=== PATIENT | female | born 1980 | race African-American/Black ===

== ENCOUNTER 2021-04-26 10:03 | Inpatient (IN) | payer MEDICARE ==
[2021-04-26] MEDS: HYDROcodone/Acetaminophen 10/325 mg Tablet PO PRN (16:17)
[2021-04-26] MEDS ORDERED: Artificial Tear Sol 15 ML BOT EA EYE PRN (16:40)
[2021-04-26] MEDS ORDERED: Calcium Carbonate 500 MG ChewTAB PO PRN (16:40)
[2021-04-26] MEDS ORDERED: Ondansetron PF 4 MG/2 ML Vial IVP PRN (16:40)
[2021-04-26] MEDS ORDERED: Guaifenesin DM 100-10/5 ML UDCUP PO PRN (16:40)
[2021-04-26] MEDS ORDERED: Senokot S 8.6-50 MG TAB PO PRN (16:40)
[2021-04-26] MEDS ORDERED: Bisacodyl 5 MG TAB PO PRN (16:40)
[2021-04-26] MEDS ORDERED: Ondansetron ODT 4 MG TAB PO PRN (16:40)
[2021-04-26] MEDS ORDERED: Benzonatate 100 MG CAP PO PRN (16:40)
[2021-04-26] MEDS: Famotidine 20 MG TAB PO SCH (21:43)
[2021-04-26] MEDS: metroNIDAZOLE 500 MG TAB PO SCH (21:44)
[2021-04-27 06:41] LABS: #Basophils 0.1 thou/uL (0.0-0.2); #Eosinphils 0.3 thou/uL (0.0-0.7); #Lymphocytes 2.1 thou/uL (1.20-3.40); #Monocytes 0.7 thou/uL (0.11-0.59); #Neutrophils 5.9 thou/uL (1.40-6.50); %Basophils 0.6 % (0.0-1.0); %Eosinophils 3.8 % (0.0-10.0); %Lymphocytes 23.3 % (21.0-51.0); %Monocytes 7.1 % (0.0-10.0); %Neutrophils 65.3 % (42.0-75.0); Mean Corpuscular Hemoglobin 26.5 pg (27.0-31.0); Mean Corpuscular Volume 85.6 fL (78.0-98.0); Mean Platelet Volume 6.1 fL (7.4-10.4); Platelet Count 379 thou/uL (130-400); Red Blood Cell (RBC) Count 3.38 mill/uL (4.20-5.40); White Blood Cell (WBC) Count 9.1 thou/uL (4.8-10.8)
[2021-04-27 06:55] LABS: ALT (SGPT) 18 U/L (8-55); AST (SGOT) 21 U/L (5-34); Albumin 2.4 g/dL (3.5-5.0); Alkaline Phosphatase 32 U/L (40-110); Anion Gap 11 mmol/L (10-20); BUN (Urea Nitrogen) 8 mg/dL (7.0-18.7); Bilirubin, Total 0.2 mg/dL (0.2-1.2); Calc. Creatinine Clearance 175 mL/min (70-130); Calcium 8.3 mg/dL (7.8-10.44); Carbon Dioxide 25 mmol/L (22-29); Chloride 106 mmol/L (98-107); Globulin 4.5 g/dL (2.4-3.5); Glucose 99 mg/dL (70-105); Potassium 3.5 mmol/L (3.5-5.1); Protein, Total 6.9 g/dL (6.0-8.3); Sodium 138 mmol/L (136-145)
[2021-04-27] MEDS: Oxybutynin ER 5 MG TAB PO SCH (08:38)
[2021-04-27] MEDS: Famotidine 20 MG TAB PO SCH ×2 (08:39→21:05)
[2021-04-27] MEDS: Vitamin E 400 UNITS CAP PO SCH (08:39)
[2021-04-27] MEDS: Enoxaparin Sodium 40 MG/0.4 ML SYRINGE SC SCH (08:39)
[2021-04-27] MEDS: metroNIDAZOLE 500 MG TAB PO SCH ×2 (08:39→21:05)
[2021-04-27] MEDS: Ascorbic Acid 500 mg Chewable Tablet PO SCH (08:39)
[2021-04-27] MEDS: cefTRIAXone\\ROCEPHIN 2 GM in Sodium Chloride 0.9% 100 ML IVPB SCH (08:40)
[2021-04-27 16:24] LABS: SARS-CoV-2 PCR by NAA Not Detected (NotDetected)
[2021-04-28] MEDS: Saccharomyces boulardii 250 MG CAP PO SCH (08:05)
[2021-04-28] MEDS: Ascorbic Acid 500 mg Chewable Tablet PO SCH (08:05)
[2021-04-28] MEDS: Famotidine 20 MG TAB PO SCH ×2 (08:05→21:15)
[2021-04-28] MEDS: Vitamin E 400 UNITS CAP PO SCH (08:05)
[2021-04-28] MEDS: metroNIDAZOLE 500 MG TAB PO SCH ×2 (08:05→21:15)
[2021-04-28] MEDS: cefTRIAXone\\ROCEPHIN 2 GM in Sodium Chloride 0.9% 100 ML IVPB SCH (08:06)
[2021-04-28] MEDS: Enoxaparin Sodium 40 MG/0.4 ML SYRINGE SC SCH (08:06)
[2021-04-28] MEDS: Oxybutynin ER 5 MG TAB PO SCH (13:48)
[2021-04-29 06:09] LABS: #Basophils 0.1 thou/uL (0.0-0.2); #Eosinphils 0.3 thou/uL (0.0-0.7); #Lymphocytes 2.5 thou/uL (1.20-3.40); #Monocytes 0.8 thou/uL (0.11-0.59); #Neutrophils 7.8 thou/uL (1.40-6.50); %Basophils 0.5 % (0.0-1.0); %Eosinophils 2.9 % (0.0-10.0); %Lymphocytes 21.9 % (21.0-51.0); %Monocytes 6.7 % (0.0-10.0); %Neutrophils 67.9 % (42.0-75.0); Hemoglobin 9.2 g/dL (12.0-16.0); Mean Corpuscular HGB CONC 31.2 g/dL (32.0-36.0); Mean Corpuscular Hemoglobin 26.5 pg (27.0-31.0); Mean Corpuscular Volume 84.9 fL (78.0-98.0); Mean Platelet Volume 5.9 fL (7.4-10.4); Platelet Count 365 thou/uL (130-400); RBC Distribution Width 13.9 % (11.5-14.5); Red Blood Cell (RBC) Count 3.47 mill/uL (4.20-5.40); White Blood Cell (WBC) Count 11.4 thou/uL (4.8-10.8)
[2021-04-29 06:26] LABS: ALT (SGPT) 26 U/L (8-55); AST (SGOT) 30 U/L (5-34); Albumin 2.6 g/dL (3.5-5.0); Alkaline Phosphatase 31 U/L (40-110); Anion Gap 13 mmol/L (10-20); BUN (Urea Nitrogen) 7 mg/dL (7.0-18.7); Bilirubin, Total 0.2 mg/dL (0.2-1.2); Calc. Creatinine Clearance 164 mL/min (70-130); Calcium 8.4 mg/dL (7.8-10.44); Carbon Dioxide 23 mmol/L (22-29); Chloride 106 mmol/L (98-107); Globulin 4.6 g/dL (2.4-3.5); Glucose 116 mg/dL (70-105); Potassium 3.5 mmol/L (3.5-5.1); Protein, Total 7.2 g/dL (6.0-8.3); Sodium 138 mmol/L (136-145)
[2021-04-29 06:58] LABS: CRP (Inflammatory) 5.69 mg/dL (= or < 0.5)
[2021-04-29] MEDS: Ascorbic Acid 500 mg Chewable Tablet PO SCH (08:29)
[2021-04-29] MEDS: Vitamin E 400 UNITS CAP PO SCH (08:29)
[2021-04-29] MEDS: Famotidine 20 MG TAB PO SCH ×2 (08:29→19:38)
[2021-04-29] MEDS: metroNIDAZOLE 500 MG TAB PO SCH ×2 (08:30→20:06)
[2021-04-29] MEDS: Oxybutynin ER 5 MG TAB PO SCH (08:30)
[2021-04-29] MEDS: Saccharomyces boulardii 250 MG CAP PO SCH (08:30)
[2021-04-29] MEDS: cefTRIAXone\\ROCEPHIN 2 GM in Sodium Chloride 0.9% 100 ML IVPB SCH (08:32)
[2021-04-29] MEDS: Enoxaparin Sodium 40 MG/0.4 ML SYRINGE SC SCH (08:34)
[2021-04-29] MEDS: Acetaminophen 325 MG TAB PO PRN (18:36)
[2021-04-30] MEDS ORDERED: Sodium Chloride 0.9% 10 ML ONE (08:44)
[2021-04-30] MEDS: Oxybutynin ER 5 MG TAB PO SCH ×2 (08:49→08:51)
[2021-04-30] MEDS: Vitamin E 400 UNITS CAP PO SCH (08:49)
[2021-04-30] MEDS: Ascorbic Acid 500 mg Chewable Tablet PO SCH (08:49)
[2021-04-30] MEDS: Famotidine 20 MG TAB PO SCH ×2 (08:49→20:45)
[2021-04-30] MEDS: metroNIDAZOLE 500 MG TAB PO SCH ×2 (08:49→20:45)
[2021-04-30] MEDS: Saccharomyces boulardii 250 MG CAP PO SCH (08:49)
[2021-04-30] MEDS: Enoxaparin Sodium 40 MG/0.4 ML SYRINGE SC SCH (08:50)
[2021-04-30] MEDS: cefTRIAXone\\ROCEPHIN 2 GM in Sodium Chloride 0.9% 100 ML IVPB SCH (08:50)
[2021-04-30] MEDS: Acetaminophen 325 MG TAB PO PRN (11:00)
[2021-04-30] MEDS: Loperamide HCl 2 MG CAP PO PRN (13:46)
[2021-05-01] MEDS: Vitamin E 400 UNITS CAP PO SCH (08:01)
[2021-05-01] MEDS: cefTRIAXone\\ROCEPHIN 2 GM in Sodium Chloride 0.9% 100 ML IVPB SCH (08:01)
[2021-05-01] MEDS: Ascorbic Acid 500 mg Chewable Tablet PO SCH (08:02)
[2021-05-01] MEDS: Enoxaparin Sodium 40 MG/0.4 ML SYRINGE SC SCH (08:02)
[2021-05-01] MEDS: metroNIDAZOLE 500 MG TAB PO SCH ×2 (08:02→20:23)
[2021-05-01] MEDS: Saccharomyces boulardii 250 MG CAP PO SCH (08:02)
[2021-05-01] MEDS: Famotidine 20 MG TAB PO SCH ×2 (08:02→20:23)
[2021-05-01] MEDS: Oxybutynin ER 5 MG TAB PO SCH (08:03)
[2021-05-01] MEDS: Loperamide HCl 2 MG CAP PO PRN (10:02)
[2021-05-02 06:30] LABS: Anion Gap 10 mmol/L (10-20); BUN (Urea Nitrogen) 14 mg/dL (7.0-18.7); Calc. Creatinine Clearance 177 mL/min (70-130); Calcium 8.5 mg/dL (7.8-10.44); Carbon Dioxide 22 mmol/L (22-29); Chloride 108 mmol/L (98-107); Glucose 95 mg/dL (70-105); Potassium 3.7 mmol/L (3.5-5.1); Sodium 136 mmol/L (136-145)
[2021-05-02 06:38] LABS: #Basophils 0.1 thou/uL (0.0-0.2); #Eosinphils 0.2 thou/uL (0.0-0.7); #Lymphocytes 3.3 thou/uL (1.20-3.40); #Monocytes 0.8 thou/uL (0.11-0.59); #Neutrophils 5.1 thou/uL (1.40-6.50); %Basophils 0.8 % (0.0-1.0); %Eosinophils 1.9 % (0.0-10.0); %Lymphocytes 35.2 % (21.0-51.0); %Monocytes 8.4 % (0.0-10.0); %Neutrophils 53.7 % (42.0-75.0); Hemoglobin 9.3 g/dL (12.0-16.0); Mean Corpuscular HGB CONC 31.8 g/dL (32.0-36.0); Mean Corpuscular Hemoglobin 26.8 pg (27.0-31.0); Mean Corpuscular Volume 84.1 fL (78.0-98.0); Mean Platelet Volume 5.5 fL (7.4-10.4); Platelet Count 407 thou/uL (130-400); Red Blood Cell (RBC) Count 3.47 mill/uL (4.20-5.40); White Blood Cell (WBC) Count 9.4 thou/uL (4.8-10.8)
[2021-05-02] MEDS: Cepastat Lozenges 1 LOZ PO PRN ×2 (07:48→14:18)
[2021-05-02] MEDS: Famotidine 20 MG TAB PO SCH ×2 (07:48→21:10)
[2021-05-02] MEDS: Vitamin E 400 UNITS CAP PO SCH (07:48)
[2021-05-02] MEDS: Enoxaparin Sodium 40 MG/0.4 ML SYRINGE SC SCH (07:49)
[2021-05-02] MEDS: Saccharomyces boulardii 250 MG CAP PO SCH (07:49)
[2021-05-02] MEDS: cefTRIAXone\\ROCEPHIN 2 GM in Sodium Chloride 0.9% 100 ML IVPB SCH (07:49)
[2021-05-02] MEDS: metroNIDAZOLE 500 MG TAB PO SCH ×2 (07:49→21:10)
[2021-05-02] MEDS: Oxybutynin ER 5 MG TAB PO SCH (07:50)
[2021-05-02] MEDS: Ascorbic Acid 500 mg Chewable Tablet PO SCH (08:20)
[2021-05-02] MEDS ORDERED: Vitamin E 400 UNITS CAP PO SCH (09:00)
[2021-05-02] MEDS ORDERED: Chloraseptic Spray 180 ml Bottle PO PRN (19:29)
[2021-05-03] MEDS: Saccharomyces boulardii 250 MG CAP PO SCH (08:33)
[2021-05-03] MEDS: metroNIDAZOLE 500 MG TAB PO SCH ×2 (08:33→20:45)
[2021-05-03] MEDS: Vitamin E 400 UNITS CAP PO SCH (08:33)
[2021-05-03] MEDS: Ascorbic Acid 500 mg Chewable Tablet PO SCH (08:33)
[2021-05-03] MEDS: Enoxaparin Sodium 40 MG/0.4 ML SYRINGE SC SCH (08:33)
[2021-05-03] MEDS: Famotidine 20 MG TAB PO SCH ×2 (08:34→20:45)
[2021-05-03] MEDS: Oxybutynin ER 5 MG TAB PO SCH (08:34)
[2021-05-03] MEDS: cefTRIAXone\\ROCEPHIN 2 GM in Sodium Chloride 0.9% 100 ML IVPB SCH (08:34)
[2021-05-03] MEDS: Nystatin Powder 15 GM BOT TOP PRN ×2 (16:42→20:44)
[2021-05-04] MEDS: Saccharomyces boulardii 250 MG CAP PO SCH (08:49)
[2021-05-04] MEDS: Ascorbic Acid 500 mg Chewable Tablet PO SCH (08:49)
[2021-05-04] MEDS: metroNIDAZOLE 500 MG TAB PO SCH ×2 (08:49→20:46)
[2021-05-04] MEDS: Vitamin E 400 UNITS CAP PO SCH (08:49)
[2021-05-04] MEDS: Enoxaparin Sodium 40 MG/0.4 ML SYRINGE SC SCH (08:50)
[2021-05-04] MEDS: cefTRIAXone\\ROCEPHIN 2 GM in Sodium Chloride 0.9% 100 ML IVPB SCH (08:50)
[2021-05-04] MEDS: Famotidine 20 MG TAB PO SCH ×2 (08:50→20:46)
[2021-05-04] MEDS: Oxybutynin ER 5 MG TAB PO SCH (08:50)
[2021-05-04] MEDS: Nystatin Powder 15 GM BOT TOP PRN (09:01)
[2021-05-04] MEDS: Loperamide HCl 2 MG CAP PO PRN (11:51)
[2021-05-05] MEDS: Enoxaparin Sodium 40 MG/0.4 ML SYRINGE SC SCH (08:34)
[2021-05-05] MEDS: Vitamin E 400 UNITS CAP PO SCH (08:36)
[2021-05-05] MEDS: metroNIDAZOLE 500 MG TAB PO SCH ×2 (08:36→20:38)
[2021-05-05] MEDS: Saccharomyces boulardii 250 MG CAP PO SCH (08:36)
[2021-05-05] MEDS: Ascorbic Acid 500 mg Chewable Tablet PO SCH (08:36)
[2021-05-05] MEDS: Nystatin Powder 15 GM BOT TOP PRN ×2 (08:37→20:37)
[2021-05-05] MEDS: Famotidine 20 MG TAB PO SCH ×2 (08:38→20:38)
[2021-05-05] MEDS: cefTRIAXone\\ROCEPHIN 2 GM in Sodium Chloride 0.9% 100 ML IVPB SCH (08:38)
[2021-05-05] MEDS: Oxybutynin ER 5 MG TAB PO SCH (08:39)
[2021-05-05] MEDS: Loperamide HCl 2 MG CAP PO PRN (09:55)
[2021-05-05] MEDS ORDERED: methylPREDNISolone Acetate 40 mg/ml Vial IM SCH (13:00)
[2021-05-05] MEDS ORDERED: DEPO PROVERA IM SCH (14:30)
[2021-05-05 21:16] LABS: SARS-CoV-2 PCR by NAA Not Detected (NotDetected)
[2021-05-06 06:27] LABS: #Basophils 0.1 thou/uL (0.0-0.2); #Eosinphils 0.2 thou/uL (0.0-0.7); #Lymphocytes 3.1 thou/uL (1.20-3.40); #Monocytes 0.6 thou/uL (0.11-0.59); %Basophils 0.8 % (0.0-1.0); %Eosinophils 2.2 % (0.0-10.0); %Lymphocytes 39.3 % (21.0-51.0); %Monocytes 7.4 % (0.0-10.0); %Neutrophils 50.3 % (42.0-75.0); Hemoglobin 9.5 g/dL (12.0-16.0); Mean Corpuscular Hemoglobin 27.1 pg (27.0-31.0); Mean Corpuscular Volume 84.8 fL (78.0-98.0); Mean Platelet Volume 5.6 fL (7.4-10.4); Platelet Count 360 thou/uL (130-400); RBC Distribution Width 15.6 % (11.5-14.5); Red Blood Cell (RBC) Count 3.51 mill/uL (4.20-5.40); White Blood Cell (WBC) Count 7.9 thou/uL (4.8-10.8)
[2021-05-06 06:40] LABS: ALT (SGPT) 12 U/L (8-55); AST (SGOT) 15 U/L (5-34); Albumin 2.8 g/dL (3.5-5.0); Anion Gap 11 mmol/L (10-20); BUN (Urea Nitrogen) 13 mg/dL (7.0-18.7); Bilirubin, Total 0.2 mg/dL (0.2-1.2); CRP (Inflammatory) 0.99 mg/dL (= or < 0.5); Calc. Creatinine Clearance 188 mL/min (70-130); Calcium 8.7 mg/dL (7.8-10.44); Carbon Dioxide 22 mmol/L (22-29); Chloride 109 mmol/L (98-107); Globulin 4.5 g/dL (2.4-3.5); Potassium 3.6 mmol/L (3.5-5.1); Protein, Total 7.3 g/dL (6.0-8.3); Sodium 138 mmol/L (136-145)
[2021-05-06 06:56] LABS: Glucose 100 mg/dL (70-105)
[2021-05-06 06:57] LABS: Alkaline Phosphatase 31 U/L (40-110)
[2021-05-06] MEDS ORDERED: DEPO PROVERA IM SCH (09:00)
[2021-05-06] MEDS ORDERED: methylPREDNISolone Acetate 40 mg/ml Vial FS SCH (09:00)
[2021-05-06] MEDS: Loperamide HCl 2 MG CAP PO PRN (09:37)
[2021-05-06] MEDS: Nystatin Powder 15 GM BOT TOP PRN (09:38)
[2021-05-06] MEDS: cefTRIAXone\\ROCEPHIN 2 GM in Sodium Chloride 0.9% 100 ML IVPB SCH (09:38)
[2021-05-06] MEDS: Enoxaparin Sodium 40 MG/0.4 ML SYRINGE SC SCH (09:40)
[2021-05-06] MEDS: Vitamin E 400 UNITS CAP PO SCH (09:41)
[2021-05-06] MEDS: Ascorbic Acid 500 mg Chewable Tablet PO SCH (09:41)
[2021-05-06] MEDS: Famotidine 20 MG TAB PO SCH ×2 (09:41→20:40)
[2021-05-06] MEDS: metroNIDAZOLE 500 MG TAB PO SCH ×2 (09:41→20:40)
[2021-05-06] MEDS: Saccharomyces boulardii 250 MG CAP PO SCH (09:41)
[2021-05-06] MEDS: Oxybutynin ER 5 MG TAB PO SCH (09:41)
[2021-05-07] MEDS: cefTRIAXone\\ROCEPHIN 2 GM in Sodium Chloride 0.9% 100 ML IVPB SCH (07:54)
[2021-05-07] MEDS: Enoxaparin Sodium 40 MG/0.4 ML SYRINGE SC SCH (07:54)
[2021-05-07] MEDS: Saccharomyces boulardii 250 MG CAP PO SCH (07:55)
[2021-05-07] MEDS: Famotidine 20 MG TAB PO SCH ×2 (07:55→21:05)
[2021-05-07] MEDS: Ascorbic Acid 500 mg Chewable Tablet PO SCH (07:55)
[2021-05-07] MEDS: Vitamin E 400 UNITS CAP PO SCH (07:55)
[2021-05-07] MEDS: Proctozone-HC 30 GM TUBE TOP SCH ×2 (07:56→21:08)
[2021-05-07] MEDS: Oxybutynin ER 5 MG TAB PO SCH (07:57)
[2021-05-07] MEDS ORDERED: Ondansetron ODT 4 MG TAB SL PRN (10:00)
[2021-05-08] MEDS: Enoxaparin Sodium 40 MG/0.4 ML SYRINGE SC SCH (07:48)
[2021-05-08] MEDS: cefTRIAXone\\ROCEPHIN 2 GM in Sodium Chloride 0.9% 100 ML IVPB SCH (07:50)
[2021-05-08] MEDS: Oxybutynin ER 5 MG TAB PO SCH (07:50)
[2021-05-08] MEDS: Famotidine 20 MG TAB PO SCH ×2 (07:51→20:55)
[2021-05-08] MEDS: Ascorbic Acid 500 mg Chewable Tablet PO SCH (07:51)
[2021-05-08] MEDS: Vitamin E 400 UNITS CAP PO SCH (07:51)
[2021-05-08] MEDS: Proctozone-HC 30 GM TUBE TOP SCH ×2 (07:51→20:56)
[2021-05-08] MEDS: Saccharomyces boulardii 250 MG CAP PO SCH (07:52)
[2021-05-09] MEDS ORDERED: Proctozone-HC 30 GM TUBE TOP PRN (07:47)
[2021-05-09] MEDS: cefTRIAXone\\ROCEPHIN 2 GM in Sodium Chloride 0.9% 100 ML IVPB SCH (07:56)
[2021-05-09] MEDS: Ascorbic Acid 500 mg Chewable Tablet PO SCH (07:56)
[2021-05-09] MEDS: Famotidine 20 MG TAB PO SCH ×2 (07:56→21:06)
[2021-05-09] MEDS: Enoxaparin Sodium 40 MG/0.4 ML SYRINGE SC SCH (07:56)
[2021-05-09] MEDS: Vitamin E 400 UNITS CAP PO SCH (07:56)
[2021-05-09] MEDS: Saccharomyces boulardii 250 MG CAP PO SCH (07:56)
[2021-05-09] MEDS: Proctozone-HC 30 GM TUBE TOP SCH (07:57)
[2021-05-09] MEDS: Oxybutynin ER 5 MG TAB PO SCH (07:57)
[2021-05-10] MEDS: cefTRIAXone\\ROCEPHIN 2 GM in Sodium Chloride 0.9% 100 ML IVPB SCH (08:27)
[2021-05-10] MEDS: Nystatin Powder 15 GM BOT TOP PRN (09:15)
[2021-05-10] MEDS: Enoxaparin Sodium 40 MG/0.4 ML SYRINGE SC SCH (09:16)
[2021-05-10] MEDS: Saccharomyces boulardii 250 MG CAP PO SCH (09:19)
[2021-05-10] MEDS: Ascorbic Acid 500 mg Chewable Tablet PO SCH (09:19)
[2021-05-10] MEDS: Famotidine 20 MG TAB PO SCH ×2 (09:19→19:31)
[2021-05-10] MEDS: Vitamin E 400 UNITS CAP PO SCH (09:19)
[2021-05-10] MEDS: Oxybutynin ER 5 MG TAB PO SCH (09:23)
[2021-05-10] MEDS: Loperamide HCl 2 MG CAP PO PRN (15:09)
[2021-05-11] MEDS: cefTRIAXone\\ROCEPHIN 2 GM in Sodium Chloride 0.9% 100 ML IVPB SCH (08:38)
[2021-05-11] MEDS: Nystatin Powder 15 GM BOT TOP PRN (08:40)
[2021-05-11] MEDS: Enoxaparin Sodium 40 MG/0.4 ML SYRINGE SC SCH (08:40)
[2021-05-11] MEDS: Saccharomyces boulardii 250 MG CAP PO SCH (08:41)
[2021-05-11] MEDS: Oxybutynin ER 5 MG TAB PO SCH (08:41)
[2021-05-11] MEDS: Vitamin E 400 UNITS CAP PO SCH (08:41)
[2021-05-11] MEDS: Famotidine 20 MG TAB PO SCH ×2 (08:44→20:21)
[2021-05-11] MEDS: Ascorbic Acid 500 mg Chewable Tablet PO SCH (08:47)
[2021-05-12] MEDS: cefTRIAXone\\ROCEPHIN 2 GM in Sodium Chloride 0.9% 100 ML IVPB SCH (08:36)
[2021-05-12] MEDS: Enoxaparin Sodium 40 MG/0.4 ML SYRINGE SC SCH (08:39)
[2021-05-12] MEDS: Saccharomyces boulardii 250 MG CAP PO SCH (08:40)
[2021-05-12] MEDS: Oxybutynin ER 5 MG TAB PO SCH (08:40)
[2021-05-12] MEDS: Vitamin E 400 UNITS CAP PO SCH (08:40)
[2021-05-12] MEDS: Ascorbic Acid 500 mg Chewable Tablet PO SCH (08:40)
[2021-05-12] MEDS: Famotidine 20 MG TAB PO SCH ×2 (08:40→19:07)
[2021-05-12] MEDS: HYDROcodone/Acetaminophen 10/325 mg Tablet PO PRN (19:07)
[2021-05-12] MEDS: Loperamide HCl 2 MG CAP PO PRN (19:09)
[2021-05-13 06:40] LABS: #Eosinphils 0.3 thou/uL (0.0-0.7); #Monocytes 0.6 thou/uL (0.11-0.59); #Neutrophils 2.6 thou/uL (1.40-6.50); %Basophils 0.7 % (0.0-1.0); %Eosinophils 4.8 % (0.0-10.0); %Lymphocytes 45.9 % (21.0-51.0); %Monocytes 8.7 % (0.0-10.0); %Neutrophils 39.9 % (42.0-75.0); Hemoglobin 9.7 g/dL (12.0-16.0); Mean Corpuscular HGB CONC 31.7 g/dL (32.0-36.0); Mean Corpuscular Hemoglobin 27.6 pg (27.0-31.0); Mean Corpuscular Volume 86.9 fL (78.0-98.0); Mean Platelet Volume 6.4 fL (7.4-10.4); Platelet Count 241 thou/uL (130-400); RBC Distribution Width 16.8 % (11.5-14.5); Red Blood Cell (RBC) Count 3.51 mill/uL (4.20-5.40); White Blood Cell (WBC) Count 6.6 thou/uL (4.8-10.8)
[2021-05-13 06:48] LABS: ALT (SGPT) 16 U/L (8-55); AST (SGOT) 14 U/L (5-34); Alkaline Phosphatase 35 U/L (40-110); Anion Gap 10 mmol/L (10-20); BUN (Urea Nitrogen) 26 mg/dL (7.0-18.7); Bilirubin, Total 0.2 mg/dL (0.2-1.2); CRP (Inflammatory) 0.87 mg/dL (= or < 0.5); Calc. Creatinine Clearance 179 mL/min (70-130); Calcium 8.6 mg/dL (7.8-10.44); Carbon Dioxide 21 mmol/L (22-29); Chloride 110 mmol/L (98-107); Globulin 4.4 g/dL (2.4-3.5); Glucose 107 mg/dL (70-105); Potassium 4.1 mmol/L (3.5-5.1); Protein, Total 7.4 g/dL (6.0-8.3); Sodium 137 mmol/L (136-145)
[2021-05-13] MEDS: Ascorbic Acid 500 mg Chewable Tablet PO SCH (08:20)
[2021-05-13] MEDS: cefTRIAXone\\ROCEPHIN 2 GM in Sodium Chloride 0.9% 100 ML IVPB SCH (08:20)
[2021-05-13] MEDS: Enoxaparin Sodium 40 MG/0.4 ML SYRINGE SC SCH (08:21)
[2021-05-13] MEDS: Oxybutynin ER 5 MG TAB PO SCH (08:22)
[2021-05-13] MEDS: Famotidine 20 MG TAB PO SCH ×2 (08:22→19:11)
[2021-05-13] MEDS: Saccharomyces boulardii 250 MG CAP PO SCH (08:22)
[2021-05-13] MEDS: Vitamin E 400 UNITS CAP PO SCH (08:23)
[2021-05-13] MEDS: Nystatin Powder 15 GM BOT TOP PRN (08:24)
[2021-05-13] MEDS: Loperamide HCl 2 MG CAP PO PRN (19:11)
[2021-05-13] MEDS: HYDROcodone/Acetaminophen 10/325 mg Tablet PO PRN (19:11)
[2021-05-14] MEDS: cefTRIAXone\\ROCEPHIN 2 GM in Sodium Chloride 0.9% 100 ML IVPB SCH (08:33)
[2021-05-14] MEDS: Ascorbic Acid 500 mg Chewable Tablet PO SCH (08:33)
[2021-05-14] MEDS: Enoxaparin Sodium 40 MG/0.4 ML SYRINGE SC SCH (08:34)
[2021-05-14] MEDS: Saccharomyces boulardii 250 MG CAP PO SCH (08:34)
[2021-05-14] MEDS: Oxybutynin ER 5 MG TAB PO SCH (08:34)
[2021-05-14] MEDS: Famotidine 20 MG TAB PO SCH ×2 (08:34→20:04)
[2021-05-14] MEDS: Vitamin E 400 UNITS CAP PO SCH (08:35)
[2021-05-14] MEDS: Loperamide HCl 2 MG CAP PO PRN ×2 (15:09→20:04)
[2021-05-14 17:22] LABS: SARS-CoV-2 PCR by NAA Not Detected (NotDetected)
[2021-05-14] MEDS: HYDROcodone/Acetaminophen 10/325 mg Tablet PO PRN (19:43)
[2021-05-15] MEDS: Vitamin E 400 UNITS CAP PO SCH (08:28)
[2021-05-15] MEDS: Ascorbic Acid 500 mg Chewable Tablet PO SCH (08:28)
[2021-05-15] MEDS: Famotidine 20 MG TAB PO SCH ×2 (08:28→20:03)
[2021-05-15] MEDS: Oxybutynin ER 5 MG TAB PO SCH (08:28)
[2021-05-15] MEDS: Saccharomyces boulardii 250 MG CAP PO SCH (08:28)
[2021-05-15] MEDS: cefTRIAXone\\ROCEPHIN 2 GM in Sodium Chloride 0.9% 100 ML IVPB SCH (08:29)
[2021-05-15] MEDS: Enoxaparin Sodium 40 MG/0.4 ML SYRINGE SC SCH (08:30)
[2021-05-15] MEDS: HYDROcodone/Acetaminophen 10/325 mg Tablet PO PRN (20:03)
[2021-05-16] MEDS: Saccharomyces boulardii 250 MG CAP PO SCH (08:28)
[2021-05-16] MEDS: Ascorbic Acid 500 mg Chewable Tablet PO SCH (08:28)
[2021-05-16] MEDS: Famotidine 20 MG TAB PO SCH ×2 (08:28→21:08)
[2021-05-16] MEDS: Vitamin E 400 UNITS CAP PO SCH (08:28)
[2021-05-16] MEDS: Enoxaparin Sodium 40 MG/0.4 ML SYRINGE SC SCH (08:29)
[2021-05-16] MEDS: cefTRIAXone\\ROCEPHIN 2 GM in Sodium Chloride 0.9% 100 ML IVPB SCH (08:29)
[2021-05-16] MEDS: Oxybutynin ER 5 MG TAB PO SCH (08:33)
[2021-05-16] MEDS: Loperamide HCl 2 MG CAP PO PRN ×2 (11:24→21:05)
[2021-05-16] MEDS: Acetaminophen 325 MG TAB PO PRN (21:05)
[2021-05-17] MEDS: Ascorbic Acid 500 mg Chewable Tablet PO SCH (08:45)
[2021-05-17] MEDS: Famotidine 20 MG TAB PO SCH ×2 (08:45→21:07)
[2021-05-17] MEDS: Saccharomyces boulardii 250 MG CAP PO SCH (08:45)
[2021-05-17] MEDS: Vitamin E 400 UNITS CAP PO SCH (08:45)
[2021-05-17] MEDS: Oxybutynin ER 5 MG TAB PO SCH (08:47)
[2021-05-17] MEDS: cefTRIAXone\\ROCEPHIN 2 GM in Sodium Chloride 0.9% 100 ML IVPB SCH (08:48)
[2021-05-17] MEDS: Enoxaparin Sodium 40 MG/0.4 ML SYRINGE SC SCH (08:50)
[2021-05-17] MEDS: Loperamide HCl 2 MG CAP PO PRN (18:45)
[2021-05-18] MEDS: Ascorbic Acid 500 mg Chewable Tablet PO SCH (07:59)
[2021-05-18] MEDS: Vitamin E 400 UNITS CAP PO SCH (07:59)
[2021-05-18] MEDS: Famotidine 20 MG TAB PO SCH ×2 (07:59→20:23)
[2021-05-18] MEDS: Saccharomyces boulardii 250 MG CAP PO SCH (08:00)
[2021-05-18] MEDS: cefTRIAXone\\ROCEPHIN 2 GM in Sodium Chloride 0.9% 100 ML IVPB SCH (08:00)
[2021-05-18] MEDS: Enoxaparin Sodium 40 MG/0.4 ML SYRINGE SC SCH (08:00)
[2021-05-18] MEDS: Oxybutynin ER 5 MG TAB PO SCH (08:25)
[2021-05-19] MEDS: Acetaminophen 325 MG TAB PO PRN (04:26)
[2021-05-19] MEDS: cefTRIAXone\\ROCEPHIN 2 GM in Sodium Chloride 0.9% 100 ML IVPB SCH (08:45)
[2021-05-19] MEDS: Saccharomyces boulardii 250 MG CAP PO SCH (08:46)
[2021-05-19] MEDS: Enoxaparin Sodium 40 MG/0.4 ML SYRINGE SC SCH (08:46)
[2021-05-19] MEDS: Famotidine 20 MG TAB PO SCH ×2 (08:47→20:36)
[2021-05-19] MEDS: Oxybutynin ER 5 MG TAB PO SCH (08:47)
[2021-05-19] MEDS: Ascorbic Acid 500 mg Chewable Tablet PO SCH (08:48)
[2021-05-19] MEDS: Vitamin E 400 UNITS CAP PO SCH (08:48)
[2021-05-20] MEDS: cefTRIAXone\\ROCEPHIN 2 GM in Sodium Chloride 0.9% 100 ML IVPB SCH (08:29)
[2021-05-20] MEDS: Vitamin E 400 UNITS CAP PO SCH (08:30)
[2021-05-20] MEDS: Ascorbic Acid 500 mg Chewable Tablet PO SCH (08:30)
[2021-05-20] MEDS: Oxybutynin ER 5 MG TAB PO SCH (08:30)
[2021-05-20] MEDS: Enoxaparin Sodium 40 MG/0.4 ML SYRINGE SC SCH (08:30)
[2021-05-20] MEDS: Saccharomyces boulardii 250 MG CAP PO SCH (08:30)
[2021-05-20] MEDS: Famotidine 20 MG TAB PO SCH ×2 (08:30→20:08)
[2021-05-20] MEDS: HYDROcodone/Acetaminophen 10/325 mg Tablet PO PRN (20:09)
[2021-05-21] MEDS: Oxybutynin ER 5 MG TAB PO SCH (08:46)
[2021-05-21] MEDS: Vitamin E 400 UNITS CAP PO SCH (08:46)
[2021-05-21] MEDS: Saccharomyces boulardii 250 MG CAP PO SCH (08:46)
[2021-05-21] MEDS: Ascorbic Acid 500 mg Chewable Tablet PO SCH (08:46)
[2021-05-21] MEDS: cefTRIAXone\\ROCEPHIN 2 GM in Sodium Chloride 0.9% 100 ML IVPB SCH (08:46)
[2021-05-21] MEDS: Enoxaparin Sodium 40 MG/0.4 ML SYRINGE SC SCH (08:47)
[2021-05-21] MEDS: Famotidine 20 MG TAB PO SCH ×2 (08:47→20:19)
[2021-05-22] MEDS: Saccharomyces boulardii 250 MG CAP PO SCH (08:34)
[2021-05-22] MEDS: Oxybutynin ER 5 MG TAB PO SCH (08:34)
[2021-05-22] MEDS: Vitamin E 400 UNITS CAP PO SCH (08:34)
[2021-05-22] MEDS: Ascorbic Acid 500 mg Chewable Tablet PO SCH (08:34)
[2021-05-22] MEDS: Enoxaparin Sodium 40 MG/0.4 ML SYRINGE SC SCH (08:34)
[2021-05-22] MEDS: Famotidine 20 MG TAB PO SCH ×2 (08:34→20:46)
[2021-05-22] MEDS: cefTRIAXone\\ROCEPHIN 2 GM in Sodium Chloride 0.9% 100 ML IVPB SCH (08:35)
[2021-05-22 14:44] LABS: SARS-CoV-2 PCR by NAA Not Detected (NotDetected)
[2021-05-22] MEDS: HYDROcodone/Acetaminophen 10/325 mg Tablet PO PRN (20:46)
[2021-05-23] MEDS: Saccharomyces boulardii 250 MG CAP PO SCH (08:22)
[2021-05-23] MEDS: Vitamin E 400 UNITS CAP PO SCH (08:22)
[2021-05-23] MEDS: Ascorbic Acid 500 mg Chewable Tablet PO SCH (08:22)
[2021-05-23] MEDS: Famotidine 20 MG TAB PO SCH ×2 (08:22→21:08)
[2021-05-23] MEDS: Oxybutynin ER 5 MG TAB PO SCH (08:22)
[2021-05-23] MEDS: cefTRIAXone\\ROCEPHIN 2 GM in Sodium Chloride 0.9% 100 ML IVPB SCH (08:23)
[2021-05-23] MEDS: Enoxaparin Sodium 40 MG/0.4 ML SYRINGE SC SCH (08:23)
[2021-05-23 11:46] LABS: #Basophils 0.1 thou/uL (0.0-0.2); #Eosinphils 0.3 thou/uL (0.0-0.7); #Lymphocytes 3.4 thou/uL (1.20-3.40); #Monocytes 0.6 thou/uL (0.11-0.59); #Neutrophils 3.2 thou/uL (1.40-6.50); %Basophils 0.9 % (0.0-1.0); %Eosinophils 3.7 % (0.0-10.0); %Lymphocytes 44.7 % (21.0-51.0); %Monocytes 8.4 % (0.0-10.0); %Neutrophils 42.3 % (42.0-75.0); Hemoglobin 10.9 g/dL (12.0-16.0); Mean Corpuscular HGB CONC 30.1 g/dL (32.0-36.0); Mean Corpuscular Hemoglobin 26.7 pg (27.0-31.0); Mean Corpuscular Volume 88.8 fL (78.0-98.0); Platelet Count 261 thou/uL (130-400); RBC Distribution Width 16.6 % (11.5-14.5); Red Blood Cell (RBC) Count 4.08 mill/uL (4.20-5.40); White Blood Cell (WBC) Count 7.5 thou/uL (4.8-10.8)
[2021-05-23 12:01] LABS: ALT (SGPT) 22 U/L (8-55); AST (SGOT) 16 U/L (5-34); Albumin 3.6 g/dL (3.5-5.0); Alkaline Phosphatase 45 U/L (40-110); Anion Gap 15 mmol/L (10-20); BUN (Urea Nitrogen) 36 mg/dL (7.0-18.7); Bilirubin, Total 0.1 mg/dL (0.2-1.2); Calc. Creatinine Clearance 171 mL/min (70-130); Calcium 9.2 mg/dL (7.8-10.44); Carbon Dioxide 17 mmol/L (22-29); Chloride 106 mmol/L (98-107); Globulin 4.9 g/dL (2.4-3.5); Glucose 104 mg/dL (70-105); Potassium 4.1 mmol/L (3.5-5.1); Protein, Total 8.5 g/dL (6.0-8.3); Sodium 134 mmol/L (136-145)
[2021-05-24] MEDS: Enoxaparin Sodium 40 MG/0.4 ML SYRINGE SC SCH (09:02)
[2021-05-24] MEDS: Saccharomyces boulardii 250 MG CAP PO SCH (09:02)
[2021-05-24] MEDS: Famotidine 20 MG TAB PO SCH ×2 (09:02→20:28)
[2021-05-24] MEDS: Ascorbic Acid 500 mg Chewable Tablet PO SCH (09:02)
[2021-05-24] MEDS: Oxybutynin ER 5 MG TAB PO SCH (09:02)
[2021-05-24] MEDS: Vitamin E 400 UNITS CAP PO SCH (09:02)
[2021-05-24] MEDS: cefTRIAXone\\ROCEPHIN 2 GM in Sodium Chloride 0.9% 100 ML IVPB SCH (09:05)
[2021-05-24] MEDS: Loperamide HCl 2 MG CAP PO PRN (18:34)
[2021-05-25] MEDS: Enoxaparin Sodium 40 MG/0.4 ML SYRINGE SC SCH (08:21)
[2021-05-25] MEDS: Vitamin E 400 UNITS CAP PO SCH (08:21)
[2021-05-25] MEDS: Famotidine 20 MG TAB PO SCH ×2 (08:22→20:25)
[2021-05-25] MEDS: Saccharomyces boulardii 250 MG CAP PO SCH (08:22)
[2021-05-25] MEDS: Ascorbic Acid 500 mg Chewable Tablet PO SCH (08:22)
[2021-05-25] MEDS: Oxybutynin ER 5 MG TAB PO SCH (08:22)
[2021-05-25] MEDS: cefTRIAXone\\ROCEPHIN 2 GM in Sodium Chloride 0.9% 100 ML IVPB SCH (08:22)
[2021-05-26] MEDS: Enoxaparin Sodium 40 MG/0.4 ML SYRINGE SC SCH (08:53)
[2021-05-26] MEDS: Ascorbic Acid 500 mg Chewable Tablet PO SCH (08:54)
[2021-05-26] MEDS: Famotidine 20 MG TAB PO SCH ×2 (08:54→20:50)
[2021-05-26] MEDS: Oxybutynin ER 5 MG TAB PO SCH (08:55)
[2021-05-26] MEDS: cefTRIAXone\\ROCEPHIN 2 GM in Sodium Chloride 0.9% 100 ML IVPB SCH (08:56)
[2021-05-26] MEDS: Vitamin E 400 UNITS CAP PO SCH (08:58)
[2021-05-26] MEDS: Saccharomyces boulardii 250 MG CAP PO SCH (09:13)
[2021-05-27 06:35] LABS: #Eosinphils 0.2 thou/uL (0.0-0.7); #Lymphocytes 2.9 thou/uL (1.20-3.40); #Monocytes 0.6 thou/uL (0.11-0.59); #Neutrophils 2.9 thou/uL (1.40-6.50); %Basophils 0.6 % (0.0-1.0); %Eosinophils 3.6 % (0.0-10.0); %Lymphocytes 43.8 % (21.0-51.0); %Monocytes 8.1 % (0.0-10.0); %Neutrophils 43.8 % (42.0-75.0); Hemoglobin 10.3 g/dL (12.0-16.0); Mean Corpuscular HGB CONC 30.8 g/dL (32.0-36.0); Mean Corpuscular Hemoglobin 27.2 pg (27.0-31.0); Mean Corpuscular Volume 88.5 fL (78.0-98.0); Mean Platelet Volume 6.5 fL (7.4-10.4); Platelet Count 249 thou/uL (130-400); RBC Distribution Width 16.4 % (11.5-14.5); Red Blood Cell (RBC) Count 3.78 mill/uL (4.20-5.40); White Blood Cell (WBC) Count 6.7 thou/uL (4.8-10.8)
[2021-05-27 06:45] LABS: Anion Gap 9 mmol/L (10-20); BUN (Urea Nitrogen) 27 mg/dL (7.0-18.7); CRP (Inflammatory) 0.83 mg/dL (= or < 0.5); Calc. Creatinine Clearance 173 mL/min (70-130); Calcium 9.2 mg/dL (7.8-10.44); Carbon Dioxide 20 mmol/L (22-29); Chloride 110 mmol/L (98-107); Potassium 4.1 mmol/L (3.5-5.1); Sodium 135 mmol/L (136-145)
[2021-05-27 07:02] LABS: Glucose 98 mg/dL (70-105)
[2021-05-27] MEDS: Ascorbic Acid 500 mg Chewable Tablet PO SCH (08:47)
[2021-05-27] MEDS: cefTRIAXone\\ROCEPHIN 2 GM in Sodium Chloride 0.9% 100 ML IVPB SCH (08:47)
[2021-05-27] MEDS: Enoxaparin Sodium 40 MG/0.4 ML SYRINGE SC SCH (08:48)
[2021-05-27] MEDS: Oxybutynin ER 5 MG TAB PO SCH (08:48)
[2021-05-27] MEDS: Famotidine 20 MG TAB PO SCH ×2 (08:48→20:45)
[2021-05-27] MEDS: Saccharomyces boulardii 250 MG CAP PO SCH (08:49)
[2021-05-27] MEDS: Vitamin E 400 UNITS CAP PO SCH (08:49)
[2021-05-28] MEDS: Famotidine 20 MG TAB PO SCH ×2 (07:45→20:37)
[2021-05-28] MEDS: Ascorbic Acid 500 mg Chewable Tablet PO SCH (07:47)
[2021-05-28] MEDS: Saccharomyces boulardii 250 MG CAP PO SCH (07:47)
[2021-05-28] MEDS: Vitamin E 400 UNITS CAP PO SCH (07:47)
[2021-05-28] MEDS: Oxybutynin ER 5 MG TAB PO SCH (07:47)
[2021-05-28] MEDS: Enoxaparin Sodium 40 MG/0.4 ML SYRINGE SC SCH (07:48)
[2021-05-28] MEDS: cefTRIAXone\\ROCEPHIN 2 GM in Sodium Chloride 0.9% 100 ML IVPB SCH (08:43)
[2021-05-29] MEDS: Oxybutynin ER 5 MG TAB PO SCH (07:37)
[2021-05-29] MEDS: Famotidine 20 MG TAB PO SCH ×2 (07:37→20:24)
[2021-05-29] MEDS: Enoxaparin Sodium 40 MG/0.4 ML SYRINGE SC SCH (07:37)
[2021-05-29] MEDS: Saccharomyces boulardii 250 MG CAP PO SCH (07:37)
[2021-05-29] MEDS: Ascorbic Acid 500 mg Chewable Tablet PO SCH (07:38)
[2021-05-29] MEDS: cefTRIAXone\\ROCEPHIN 2 GM in Sodium Chloride 0.9% 100 ML IVPB SCH (08:59)
[2021-05-29] MEDS: Vitamin E 400 UNITS CAP PO SCH (09:00)
[2021-05-29] MEDS: Acetaminophen 325 MG TAB PO PRN (17:17)
[2021-05-30] MEDS: Vitamin E 400 UNITS CAP PO SCH (09:32)
[2021-05-30] MEDS: cefTRIAXone\\ROCEPHIN 2 GM in Sodium Chloride 0.9% 100 ML IVPB SCH (09:32)
[2021-05-30] MEDS: Saccharomyces boulardii 250 MG CAP PO SCH (09:32)
[2021-05-30] MEDS: Oxybutynin ER 5 MG TAB PO SCH (09:32)
[2021-05-30] MEDS: Ascorbic Acid 500 mg Chewable Tablet PO SCH (09:32)
[2021-05-30] MEDS: Famotidine 20 MG TAB PO SCH ×2 (09:32→21:39)
[2021-05-30] MEDS: Enoxaparin Sodium 40 MG/0.4 ML SYRINGE SC SCH (09:34)
[2021-05-31] MEDS: cefTRIAXone\\ROCEPHIN 2 GM in Sodium Chloride 0.9% 100 ML IVPB SCH (09:13)
[2021-05-31] MEDS: Saccharomyces boulardii 250 MG CAP PO SCH (09:19)
[2021-05-31] MEDS: Oxybutynin ER 5 MG TAB PO SCH (09:20)
[2021-05-31] MEDS: Ascorbic Acid 500 mg Chewable Tablet PO SCH (09:20)
[2021-05-31] MEDS: Famotidine 20 MG TAB PO SCH ×2 (09:20→20:51)
[2021-05-31] MEDS: Enoxaparin Sodium 40 MG/0.4 ML SYRINGE SC SCH (09:20)
[2021-05-31] MEDS: Vitamin E 400 UNITS CAP PO SCH (09:21)
[2021-05-31 11:23] LABS: SARS-CoV-2 PCR by NAA Not Detected (NotDetected)
[2021-06-01] MEDS: cefTRIAXone\\ROCEPHIN 2 GM in Sodium Chloride 0.9% 100 ML IVPB SCH (08:52)
[2021-06-01] MEDS: Ascorbic Acid 500 mg Chewable Tablet PO SCH (08:52)
[2021-06-01] MEDS: Enoxaparin Sodium 40 MG/0.4 ML SYRINGE SC SCH (08:53)
[2021-06-01] MEDS: Famotidine 20 MG TAB PO SCH ×2 (08:53→20:49)
[2021-06-01] MEDS: Oxybutynin ER 5 MG TAB PO SCH (08:53)
[2021-06-01] MEDS: Saccharomyces boulardii 250 MG CAP PO SCH (08:53)
[2021-06-01] MEDS: Vitamin E 400 UNITS CAP PO SCH (08:54)
[2021-06-02 06:04] VITALS: BMI 34.5
[2021-06-02] MEDS: Famotidine 20 MG TAB PO SCH ×2 (09:02→20:29)
[2021-06-02] MEDS: Ascorbic Acid 500 mg Chewable Tablet PO SCH (09:02)
[2021-06-02] MEDS: Enoxaparin Sodium 40 MG/0.4 ML SYRINGE SC SCH (09:02)
[2021-06-02] MEDS: cefTRIAXone\\ROCEPHIN 2 GM in Sodium Chloride 0.9% 100 ML IVPB SCH (09:02)
[2021-06-02] MEDS: Vitamin E 400 UNITS CAP PO SCH (09:03)
[2021-06-02] MEDS: Saccharomyces boulardii 250 MG CAP PO SCH (09:03)
[2021-06-02] MEDS: Oxybutynin ER 5 MG TAB PO SCH (09:03)
[2021-06-02] MEDS: Loperamide HCl 2 MG CAP PO PRN ×2 (17:06→20:29)
[2021-06-03 07:33] VITALS: BP 116/66; TEMP 98.7
[2021-06-03] MEDS: Vitamin E 400 UNITS CAP PO SCH (08:13)
[2021-06-03] MEDS: Ascorbic Acid 500 mg Chewable Tablet PO SCH (08:13)
[2021-06-03] MEDS: Enoxaparin Sodium 40 MG/0.4 ML SYRINGE SC SCH (08:14)
[2021-06-03] MEDS: cefTRIAXone\\ROCEPHIN 2 GM in Sodium Chloride 0.9% 100 ML IVPB SCH (08:14)
[2021-06-03] MEDS: Saccharomyces boulardii 250 MG CAP PO SCH (08:14)
[2021-06-03] MEDS: Oxybutynin ER 5 MG TAB PO SCH (08:14)
[2021-06-03] MEDS: Famotidine 20 MG TAB PO SCH (08:15)
== END 2021-06-03 11:32 | disposition home or self-care (01) | DRG 540 ==
LOC: NAV ACUTE 10:15
PROVIDERS: ADMIT Family Medicine; ATTEND Family Medicine
DX: M86.8X8 Other osteomyelitis, other site (principal); G82.20 Paraplegia, unspecified; F32.A Depression, unspecified; Z20.822 Contact with and (suspected) exposure to COVID-19; R73.03 Prediabetes; R32 Unspecified urinary incontinence; D63.8 Anemia in other chronic diseases classified elsewhere; R53.81 Other malaise; N31.9 Neuromuscular dysfunction of bladder, unspecified; I89.0 Lymphedema, not elsewhere classified; Z98.890 Other specified postprocedural states; Z79.899 Other long term (current) drug therapy
CPT/HCPCS: 36415; 80048; 80053; 85025; 85652; 86140; 87070; 97602; J0696; J1650; J3490; U0003; U0005